=== PATIENT | female | born 1935 | race Two or more races ===

== ENCOUNTER 2022-02-06 11:34 | Outpatient (CLI) | payer OTHER | END 2022-02-06 11:44 | disposition home or self-care (01) | LOC: TOM 11:34 | PROVIDERS: ATTEND Psychiatry & Neurology Clinical Neurophysiology | DX: F01.50 Vascular dementia, unspecified severity, without behavioral disturbance, psychotic disturbance, mood disturbance, and anxiety (principal) ==

== ENCOUNTER 2022-12-04 10:05 | Outpatient (CLI) | payer OTHER | END 2022-12-04 10:13 | disposition home or self-care (01) | LOC: SONOGRAMA 10:05 | PROVIDERS: ATTEND Internal Medicine Endocrinology, Diabetes & Metabolism | DX: E04.2 Nontoxic multinodular goiter (principal) ==